=== PATIENT | male | born 1935 | race Caucasian/White ===

== ENCOUNTER 2018-02-21 10:28 | Inpatient (IN) | payer MEDICARE, OTHER ==
[~2018-02-21] VITALS: Ht 185.4 cm; Wt 99.3 kg
[2018-05-04] VITALS (9 sets, daily range): BP systolic 153–188; BP diastolic 73–97; PULSE 67–94; TEMP 97–98
--- NOTE | 2018-05-04 08:30 | NUR ---
arrived on unit per at 0815, prepped for surgery without incident, explanation given to patient and his forgoing to and returning from surgery, verbalizes understanding
[2018-05-04] MEDS ORDERED: FLOMAX 0.40.4 MG/CAP PO (09:01)
[2018-05-04] MEDS ORDERED: LOPID 600M600 MG/TAB PO (09:01)
[2018-05-04] MEDS ORDERED: ULTRAM 50MG TAB50 MG PO (09:02)
[2018-05-04] MEDS ORDERED: ASPIRIN 32325 MG/TA1 PO (09:03)
[2018-05-04] MEDS ORDERED: NORCO 325 MG-51 TAB PO (09:03)
[2018-05-04] MEDS ORDERED: PROSVENT PO (09:04)
[2018-05-04] MEDS ORDERED: MULTI VITAMINS1 TAB PO (09:04)
[2018-05-04] MEDS ORDERED: VITAMIN C500 MG PO (09:05)
[2018-05-04] MEDS ORDERED: FOLIC ACID 40400 MCG PO (09:05)
[2018-05-04] MEDS ORDERED: FERROUS SU325 MG/TAB PO (09:06)
--- NOTE | 2018-05-04 10:20 | NUR ---
resting in bed, GEORGE Parks in to see patient, assisted him up to bathroom and voided qs and then back to bed
--- NOTE | 2018-05-04 11:41 | NUR ---
to surgery per bed
--- NOTE | 2018-05-04 12:04 | NUR ---
First visit from the clinical study manager. No needs right now.
--- NOTE | 2018-05-04 14:58 | NUR ---
DIANE and DIANE student met with the patient's , Kimberly, to discuss discharge plan. The patient was in recovery. The patient lives in [place] with his . The patient's reports the patient is independent with ADLs and has a cane and walker. The patient's PCP is Dr. Charli Mena and he receives his medications at the [facility] in [place]. The patient's reports no difficulties obtaining his meds. The patient does not have advanced directives in EMR, but the patient's reports that the patient does have them completed and that they are at home. The patient's reports that the patient's plan was to go to [facility] for [facility]. DIANE informed the patient that she would work closely and collaborate with our RN Case Manger to see if he qualifies. DIANE informed risk management internship, Evie. The patient's reports that if he does not qualify, then the plan would to go home. SW to continue to follow.
--- NOTE | 2018-05-04 15:31 | NUR ---
PT TO ROOM 331. PER BED WITH REPORT FROM LASHAWN RN AND KATHRYN STOCK WORKER. PT IS A/O X3 LUNGS CLEAR, BOWEL SOUNDS PRESENT. DRESSING TO RIGHT KNEE CDI WITH AQUACEL OVER INCISION. CRYO CUFF INPLACE AND COLD. PUMP RUNNING. PT'S AT BEDSIDE.
--- NOTE | 2018-05-04 18:49 | NUR ---
REPORT TO RICO FIGUEROA.
--- NOTE | 2018-05-04 20:00 | NUR ---
ASSUMED CARE OF PATIENT FOR CAREER SERVICES OFFICER. ASSESSMENT COMPLETE. VS STABLE. C/O PAIN RATED 10/10. STATES HE HAS TAKEN [facility] FOR PAIN FOR 15 YEARS AND THE EARLIER DOSE DIDNT TOUCH HIS CURRENT PAIN. MEDICATED AT THIS TIME PER DR ORDER WITH 2MG IV MORPHINE AND 2 TABS OF ROXICODONE. WILL MONITOR EFFECTIVENESS. NGUYEN DRAINING CLEAR YELLOW URINE. D5 1/2 NS HUNG AND INFUSING AT 125/HR. TEDS AND SCDS BILATERALLY. CRYOCUFF TO RIGHT KNEE. DRESSING CLEAN DRY AND INTACT. PLAN OF CARE DISCUSSED FOR SITTING ON SIDE OF BED/STANDING/AMBULATION LATER THIS SHIFT AFTER PAIN UNDER CONTROL. VERBALIZES UNDERSTANDING. CALL LIGHT WITHIN REACH. BED IN LOW POSITION. WHEELS LOCKED. ENCOUARAGED TO CALL FOR QUESTIONS OR CONCERNS. VERBALIZES UNDERSTANDING. WILL MONITOR.
--- NOTE | 2018-05-04 22:00 | NUR ---
SAT ON SIDE OF BED WITH ASSISTANCE. STATES HE WOULD LIKE TO TRY TO STAND AND IF HE CAN WALK WOULD LIKE TO AMBULATE. GAIT BELT ON AND ASSISTED TO STANDING POSITION WITH 2 STAFF AND WALKER. STATES HE DOES FEEL SOME DIZZINESS. UNABLE TO MAKE A STEP AT THIS TIME. ASSISTED BACK TO BED. DENEIS ANY C/O AT THIS TIME. PLAN OF CARE DISCUSSED FOR LATER AMBULATION. VERBALIZES UNDERSTANDING.
[2018-05-05] VITALS (7 sets, daily range): BP systolic 142–153; BP diastolic 59–76; PULSE 73–114; TEMP 97.2–98.9
--- NOTE | 2018-05-05 07:08 | NUR ---
Report from Janna FIGUEROA.
[2018-05-05 07:13] LABS: HEMATOCRIT 43.6 % (42.0-52.0); HEMOGLOBIN 13.6 g/dl (13.5-18.0)
--- NOTE | 2018-05-05 08:34 | NUR ---
PT SITTING UP IN BED ATE 100% OF BREAKFAST. PO PAIN MEDS WORKING WELL FOR PAIN CONTROL THIS AM. DRESSING TO RIGHT KNEE CDI WITH AQUACEL OVER INCISION. SCDS AND TEDS BILATERALLY. PT DEINES NEEDS AT THIS TIME.
--- NOTE | 2018-05-05 12:22 | NUR ---
Follow up visit from the [employer] assistant manager. Chaplain queenyed with patient. No other needs right now.
--- NOTE | 2018-05-05 14:48 | NUR ---
Dr. Ortiz continues with an inpatient order status. The patient desires to transfer to [facility] upon discharge. SW presented and explained the patient choice form to the patient and patient's . The patient preferred [facility]. Patient choice form signed by the patient's and she was provided a copy. DIANE contacted and faxed a referral to Tracy at [facility]. SW awaiting their screening.
--- NOTE | 2018-05-05 18:57 | NUR ---
REPORT TO ANGELA FIGUEROA.
--- NOTE | 2018-05-05 20:00 | NUR ---
Pt. sitting up in bed at this time. Pt. is A&OX3, assessment complete. INT to lt. hand patent. Dressing to Rt. knee CDI. Pt. reports pain to rt. knee at a 6 on pain scale, will give pain meds per orders. Pt. denies further needs, call light within reach.
[2018-05-06 04:00] VITALS: BP 121/55; PULSE 89; TEMP 98.1
[2018-05-06 07:34] VITALS: BP 118/60; PULSE 96; TEMP 98.4
--- NOTE | 2018-05-06 07:38 | NUR ---
Reported on shift from HENRY Kelley. Shift assessment completed. Pt. sitting in bed waiting for breakfast.
--- NOTE | 2018-05-06 10:20 | NUR ---
Dressing change to right knee using 10 inch aquacell dressing. 29 analia intact. Pt. tolerated procedure well.
--- NOTE | 2018-05-06 10:32 | NUR ---
Pt. walked down the hallway and particpated in PT. Tolerated well and stated pain level was less than before PT started.
[2018-05-06] MEDS ORDERED: ASPI325T6 PO (10:41)
[2018-05-06] MEDS ORDERED: NORCO 325 MG-7.1 TAB PO (10:42)
[2018-05-06] MEDS ORDERED: ROXICODONE 55 MG/TAB PO (10:42)
[2018-05-06] MEDS ORDERED: PEPCID 20MG TAB20 MG PO (10:42)
--- NOTE | 2018-05-06 11:47 | NUR ---
Tracy, at [facility], reports that Dr. Mena will follow the patient at [facility]; but that they need a [id number] call before they decide on whether they can accept the patient for not. Tracy provided DIANE with Dr. Mena's cell phone number ([phone]). DIANE contacted Dr. Ortiz's Nurse Practitioner, Kasey Castanon, and provided her with the number. Nisreen reports that she will give Dr. Mena a call today. Tracy provided SW with the [id number] number for report ([phone]). DIANE provided that number to the patient's nurse, Fany. The fax number for discharge orders is ([phone]). DIANE will need to contact [facility] Wednesday morning to check on whether they still have a bed or not and to inform that the patient is ready to discharge. Tracy informed SW that they do have beds available today and that she believes they should have a bed tomorrow. SW to continue to follow.
[2018-05-06 12:26] VITALS: BP 130/65; PULSE 112; TEMP 98.1
--- NOTE | 2018-05-06 12:40 | NUR ---
Pt. sitting in recliner eating lunch. Call light in reach. OT provided shower, pt. requested pain medication before 1300 PT. Pt. is ready to discharge tomorrow 05/07 to [facility].
--- NOTE | 2018-05-06 15:37 | NUR ---
Claudia, at [facility], reports that they are able to accept the patient. SW met with the patient and patient's to update. The patient's reports that if some reason [facility] does not have a bed tomorrow, then the plan would be for her to take the patient back home. SW to continue to follow.
[2018-05-06 16:27] VITALS: BP 121/49; PULSE 101; TEMP 98.5
[2018-05-06 20:00] VITALS: BP 128/61; PULSE 111; TEMP 98.1
--- NOTE | 2018-05-06 20:50 | NUR ---
Pt. sitting up in bed at this time. Pt. is A&OX3, assessment complete. INT to rt. forearm patent. Pt. reports pain to rt. knee at a 4 on pain scale at this time. Gave pain med per orders. Pt. up to the bathroom at this time. Gait belt and walker used. Pt. then ambulated the halls with standby assist. Pt. assited back to bed and repostioned for comfort. Cryocuff to rt. knee. Pt. denies further needs.
[2018-05-07] VITALS: BP 126/69; PULSE 111; TEMP 98.1
[2018-05-07 04:00] VITALS: BP 118/62; PULSE 94; TEMP 97.7
[2018-05-07 08:51] VITALS: BP 133/54; PULSE 96; TEMP 98.5
[2018-05-07 09:56] VITALS: BP 133/54; PULSE 96; TEMP 98.5
--- NOTE | 2018-05-07 10:20 | NUR ---
Ambulated with walker in halls with physical therapy. Right knee pain improved with prn pain med. Report given to nurse at [facility]. Dismissed with family to [facility].
--- NOTE | 2018-05-07 14:51 | NUR ---
Faxed DC summary to per notes, nothing follows
== END 2018-05-07 10:20 | disposition swing bed (61) | DRG 470 ==
LOC: SDCO 05-04 07:30 → JCC 05-04 07:30 → EDSTATUS 05-04 07:30 → JCC 05-04 07:55 → SDCO 05-04 11:20 → JCC 05-04 14:50 → SDCO 05-04 14:50 → JCC 05-07 10:20
PROVIDERS: ADMIT Orthopaedic Surgery
PROC: 0SRC0J9 Replacement of Right Knee Joint with Synthetic Substitute, Cemented, Open Approach (ICD-10-PCS; principal; 2018-05-04 14:50)
DX: M17.11 Unilateral primary osteoarthritis, right knee (principal); Z87.891 Personal history of nicotine dependence; M21.061 Valgus deformity, not elsewhere classified, right knee; E78.5 Hyperlipidemia, unspecified
CPT/HCPCS: A4314; C1713; C1776; J0690; J1100; J1885; J2250; J2270; J2405; J2704; J3010; J3370; J7120

== ENCOUNTER → 2018-04-27 | Outpatient (CLI) | payer MEDICARE, OTHER ==
[2018-04-27 12:33] LABS: HIV 1/2 Antibodies Non-Reactive; HIV-1p24 Antigen Non-Reactive
== END ==
LOC: COL.LAB 11:13
PROVIDERS: Orthopaedic Surgery
DX: Z01.812 Encounter for preprocedural laboratory examination (principal); M17.11 Unilateral primary osteoarthritis, right knee